=== PATIENT | male | born 1985 | race Caucasian/White ===

== ENCOUNTER 2018-04-17 16:18 | Emergency (ER) | payer OTHER ==
[~2018-04-17] VITALS: Ht 172.7 cm; Wt 138.8 kg
[2018-04-17 16:23] VITALS: Ht 172.7 cm; Wt 138.8 kg
[2018-04-17 18:42] VITALS: BP 154/89
== END 2018-04-17 18:42 | disposition home or self-care (01) ==
LOC: ED 16:18
DX: S61.212A Laceration without foreign body of right middle finger without damage to nail, initial encounter (principal); X58.XXXA Exposure to other specified factors, initial encounter; Y93.89 Activity, other specified; Y92.89 Other specified places as the place of occurrence of the external cause; Y99.8 Other external cause status
CPT/HCPCS: J2001

== ENCOUNTER 2018-04-20 14:42 | Emergency (ER) | payer OTHER ==
[~2018-04-20] VITALS: Ht 172.7 cm; Wt 137.4 kg
[2018-04-20 14:54] VITALS: Ht 172.7 cm; Wt 137.4 kg
[2018-04-20 15:53] VITALS: BP 142/83
== END 2018-04-20 15:53 | disposition home or self-care (01) ==
LOC: ED 14:42
DX: S61.212D Laceration without foreign body of right middle finger without damage to nail, subsequent encounter (principal); X58.XXXD Exposure to other specified factors, subsequent encounter

== ENCOUNTER 2018-04-25 17:08 | Emergency (ER) | payer OTHER ==
[~2018-04-25] VITALS: Ht 172.7 cm; Wt 137.4 kg
[2018-04-25 17:23] VITALS: Ht 172.7 cm; Wt 137.4 kg
[2018-04-25 18:12] VITALS: BP 136/87
== END 2018-04-25 18:12 | disposition home or self-care (01) ==
LOC: ED 17:08
DX: S61.212D Laceration without foreign body of right middle finger without damage to nail, subsequent encounter (principal); X58.XXXD Exposure to other specified factors, subsequent encounter; R03.0 Elevated blood-pressure reading, without diagnosis of hypertension

== ENCOUNTER 2018-04-29 16:25 | Emergency (ER) | payer OTHER ==
[~2018-04-29] VITALS: Ht 172.7 cm; Wt 137.9 kg
[2018-04-29 16:33] VITALS: BP 141/84; Ht 172.7 cm; Wt 137.9 kg
== END 2018-04-29 17:01 | disposition home or self-care (01) ==
LOC: ED 16:25
DX: S61.212D Laceration without foreign body of right middle finger without damage to nail, subsequent encounter (principal); X58.XXXD Exposure to other specified factors, subsequent encounter